=== PATIENT | male | born 1960 | race Hispanic/Latino ===

== ENCOUNTER 2018-10-19 12:27 | Emergency (ER) | payer BC ==
[~2018-10-19] VITALS: Ht 172.7 cm; Wt 70.0 kg
[~2018-10-19 12:27] MED LIST: BENAZEPRIL5 MG OR; GABAPENTIN300 MG PO; METFORMIN500 M1 OR; NEURONTIN600 MG PO; OXYCODONE5 M1 PO; SIMVASTATIN40 MG PO; ZESTRIL10 M1 PO
[2018-10-19 14:11] LABS: HEMATOCRIT 43.9 % (39.0-50.0); HEMOGLOBIN 14.9 g/dl (14.0-18.0); IMMATURE GRANULOCYTES 0.8 % (0.0-5.0); MEAN CELL VOLUME 88.3 fL CALC (80.0-100.0); MEAN CORPUSCULAR HGB CONC 33.9 g/L CALC (32.0-36.0); NEUT# 4.81 thou/uL (1.82-7.42); RED BLOOD COUNT 4.97 mill/uL (4.70-6.10); RED CELL DISTRI WIDTH 12.4 % (11.5-15.5)
[2018-10-19 14:38] LABS: ALBUMIN 4.4 g/dL (3.2-5.0); ALKALINE PHOSPHATASE 147 u/l (38-126); ANION GAP 15 (6-22 (CALC)); BUN 12 mg/dL (9-20); BUN/CREATININE RATIO 16 (12-20 (CALC)); CARBON DIOXIDE 24 mmol/l (22-30); CHLORIDE 103 mmol/l (95-108); CREATININE 0.7 mg/dL (0.7-1.3); GFR > 60 ML/MIN (>=60 (CALC)); GFR FOR AFR.AMER. > 60 ML/MIN (>=60 (CALC)); POTASSIUM 4.9 mmol/l (3.5-5.1); SGOT/AST 23 u/l (17-59); SODIUM 137 mmol/l (137-146); TOTAL PROTEIN 7.5 g/dL (6.3-8.2)
[2018-10-19 14:40] LABS: BILIRUBIN, TOTAL 0.6 mg/dL (0.0-1.4)
[2018-10-19] MEDS ORDERED: KEFLEX500 M1 PO (14:50)
[2018-10-19] MEDS ORDERED: BACTROBAN TOP (14:50)
[2018-10-19] MEDS ORDERED: METFORMIN500 M1 PO (14:50)
[2018-10-19] MEDS ORDERED: BACTRIM DS1 TAB PO (14:50)
[2018-10-19 14:56] VITALS: BP 155/89
== END 2018-10-19 15:08 | disposition home or self-care (01) | DRG 603 ==
LOC: ED 12:27
PROVIDERS: Family Medicine
DX: L03.114 Cellulitis of left upper limb (principal); I10 Essential (primary) hypertension; E11.65 Type 2 diabetes mellitus with hyperglycemia; Z79.84 Long term (current) use of oral hypoglycemic drugs

== ENCOUNTER 2018-10-21 08:05 | Emergency (ER) | payer BC ==
[~2018-10-21] VITALS: Ht 172.7 cm; Wt 70.0 kg
[~2018-10-21 08:05] MED LIST changes: +BACTRIM DS1 TAB PO; +BACTROBAN TOP; +KEFLEX500 M1 PO; +METFORMIN500 M1 PO
[2018-10-21 08:23] VITALS: BP 136/92
== END 2018-10-21 08:30 | disposition home or self-care (01) | DRG 603 ==
LOC: ED 08:05
DX: L08.9 Local infection of the skin and subcutaneous tissue, unspecified (principal); E11.65 Type 2 diabetes mellitus with hyperglycemia; Z79.84 Long term (current) use of oral hypoglycemic drugs